=== PATIENT | male | born 1965 | race Caucasian/White ===

== ENCOUNTER 2017-09-08 19:47 | Emergency (ER) | payer SELFPAY ==
[~2017-09-08] VITALS: Ht 182.9 cm; Wt 97.6 kg
[2017-09-08 19:50] VITALS: BP 152/74
[2017-09-08] MEDS ORDERED: DIPH,PERTUSS(ACELL),TET VAC/PF 0.5 ML IM-VACC ONE ×2 (20:00→21:42)
[2017-09-08] MEDS ORDERED: LIDOCAINE 1%, 10ML INFIL ONE (21:00)
[2017-09-08] MEDS ORDERED: BACITRACIN ZINC OINT 500U/GM, 0.9 GM ONE (21:51)
== END 2017-09-08 22:05 | disposition home or self-care (01) ==
LOC: ED 21:59
DX: S61.313A Laceration without foreign body of left middle finger with damage to nail, initial encounter (principal); X58.XXXA Exposure to other specified factors, initial encounter; Y93.89 Activity, other specified; Y92.69 Other specified industrial and construction area as the place of occurrence of the external cause; Y99.8 Other external cause status
CPT/HCPCS: 12041; 73140; 90471; 90715; 99284; J3490

== ENCOUNTER 2018-08-28 10:34 | Emergency (ER) | payer MEDICAID, OTHER ==
[~2018-08-28] VITALS: Ht 172.7 cm; Wt 96.8 kg
[2018-08-28 10:54] VITALS: BP 148/81
[2018-08-28] MEDS ORDERED: DIAZEPAM 5 MG TABLET ONE (11:17)
[2018-08-28] MEDS ORDERED: KETOROLAC 30 MG/1 ML ONE (11:17)
[2018-08-28] MEDS ORDERED: KETOROLAC 30 MG/1 ML IM ONE (11:30)
[2018-08-28] MEDS ORDERED: DIAZEPAM 5 MG TABLET PO ONE (11:30)
[2018-08-28 12:00] LABS: MICROSCOPIC NOT IND
[2018-08-28 12:04] LABS: CULTURE INDICATED? NO
[2018-08-28] MEDS ORDERED: DEXAMETHASONE 4 MG TABLET ONE (16:10)
== END 2018-08-28 18:17 | disposition home or self-care (01) ==
LOC: ED 12:50
DX: S29.012A Strain of muscle and tendon of back wall of thorax, initial encounter (principal); M54.5 Low back pain; X58.XXXA Exposure to other specified factors, initial encounter; Y93.89 Activity, other specified; Y99.8 Other external cause status; Y92.89 Other specified places as the place of occurrence of the external cause
CPT/HCPCS: 72080; 81003; 96372; 99285; J1885